=== PATIENT | male | born 1930 | race Caucasian/White ===

== ENCOUNTER 2018-04-28 23:01 | Emergency (ER) | payer MEDICARE, OTHER ==
[~2018-04-28] VITALS: Ht 182.9 cm; Wt 88.0 kg
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
[2018-04-28] MEDS ORDERED: NAPROXEN 250 MG TABLET ONE (23:44)
[2018-04-29] MEDS ORDERED: NAPROXEN 250 MG TABLET PO ONE
--- NOTE | 2018-04-29 00:59 | NUR ---
Patient discharged to home in stable condition. Written and verbal after care instructions given. Patient verbalizes understanding of instruction. Pt ambulatory with a steady gait
[2018-04-29 01:00] VITALS: BP 140/88
== END 2018-04-29 01:02 | disposition home or self-care (01) ==
LOC: ER 23:04
DX: S20.212A Contusion of left front wall of thorax, initial encounter (principal); I10 Essential (primary) hypertension; E11.9 Type 2 diabetes mellitus without complications; V49.59XA Passenger injured in collision with other motor vehicles in traffic accident, initial encounter; Y93.89 Activity, other specified; Y92.410 Unspecified street and highway as the place of occurrence of the external cause; Y99.8 Other external cause status
CPT/HCPCS: 71100; 93005; 99284; A4606; Z7610